=== PATIENT | male | born 1955 | race Caucasian/White ===

== ENCOUNTER 2021-04-25 10:17 | Day surgery (SDC) | payer MEDICARE, BC ==
[~2021-04-25] VITALS: Ht 182.9 cm; Wt 128.5 kg
[~2021-04-25 10:17] MED LIST: DUTA.5 PO; EDARBYCLOR 40-1 EACH PO; MICARDIS/HCTZ; OXYACE5T PO; Omeprazole20 M1; PROM25 PO; Phentermine HCl30 MG; RXOXYACE PO; VALS80; VITAMIN D-32000 UNIT PO
--- NOTE | 2021-04-25 11:03 | NUR ---
04/25/21 1103 Kendra Dye BLOOD IS DRAWN FOR PRP, ANTICOAG IS ADDED TO SPECIMEN, SPECIMEN DELIVERED TO OR AND SPUN.
--- NOTE | 2021-04-25 12:34 | NUR ---
04/25/21 1234 Kris Montoya 1 MG EPI ADDED TO EACH OF THE FIRST 3 BAGS OF LR PER ORDER FOR IRRIGATION.
--- NOTE | 2021-04-25 14:12 | NUR ---
04/25/21 1412 NILO TERRAZAS O2 PER NC AT 4L PLACED ON - O2 SAT DROPPING TO 89
== END 2021-04-25 14:11 | disposition home or self-care (01) ==
LOC: ORSCSDS 10:17
PROVIDERS: Orthopaedic Surgery
PROC: 0LS34ZZ Reposition Right Upper Arm Tendon, Percutaneous Endoscopic Approach (ICD-10-PCS; principal; 2021-04-25 11:45)
PROC: 0RNJ4ZZ Release Right Shoulder Joint, Percutaneous Endoscopic Approach (ICD-10-PCS; principal; 2021-04-25 11:45)
PROC: 0LQ14ZZ Repair Right Shoulder Tendon, Percutaneous Endoscopic Approach (ICD-10-PCS; principal; 2021-04-25 11:45)
DX: M75.111 Incomplete rotator cuff tear or rupture of right shoulder, not specified as traumatic (principal); M75.21 Bicipital tendinitis, right shoulder; M75.41 Impingement syndrome of right shoulder; I10 Essential (primary) hypertension; K21.9 Gastro-esophageal reflux disease without esophagitis; Z79.899 Other long term (current) drug therapy; E66.01 Morbid (severe) obesity due to excess calories; Z68.38 Body mass index [BMI] 38.0-38.9, adult
CPT/HCPCS: C1713; J0171; J0690; J1100; J1885; J2250; J2405; J2704; J3010; J7120

== ENCOUNTER 2022-01-30 09:37 | Day surgery (SDC) | payer MEDICARE, BC ==
[~2022-01-30] VITALS: Ht 182.9 cm; Wt 126.9 kg
[2022-01-30] MEDS ORDERED: ZINC15 (10:07)
[2022-01-30] MEDS ORDERED: FOLIKA-NC TABL1 EACH (10:07)
== END 2022-01-30 11:37 | disposition home or self-care (01) ==
LOC: ORSCSDS 09:37
PROVIDERS: Surgery
PROC: 0DBH8ZX Excision of Cecum, Via Natural or Artificial Opening Endoscopic, Diagnostic (ICD-10-PCS; principal; 2022-01-30 11:00)
PROC: 0DBK8ZX Excision of Ascending Colon, Via Natural or Artificial Opening Endoscopic, Diagnostic (ICD-10-PCS; principal; 2022-01-30 11:00)
DX: Z12.11 Encounter for screening for malignant neoplasm of colon (principal); Z86.010 Personal history of colon polyps; Z80.0 Family history of malignant neoplasm of digestive organs; D12.0 Benign neoplasm of cecum; D12.2 Benign neoplasm of ascending colon; I10 Essential (primary) hypertension; G47.30 Sleep apnea, unspecified; E11.9 Type 2 diabetes mellitus without complications; E66.9 Obesity, unspecified; Z68.38 Body mass index [BMI] 38.0-38.9, adult; Z79.899 Other long term (current) drug therapy
CPT/HCPCS: 82947; 88305; J2704; J7120

== ENCOUNTER → 2022-05-07 | Outpatient (CLI) | payer MEDICARE, BC ==
[~2022-05-07] MED LIST changes: +FOLIKA-NC TABL1 EACH; +ZINC15
== END | disposition home or self-care (01) ==
LOC: LAB 07:58 → LAB SHORT 07:58
DX: C43.62 Malignant melanoma of left upper limb, including shoulder (principal)
CPT/HCPCS: 88305

== ENCOUNTER → 2022-05-28 | Outpatient (CLI) | payer MEDICARE, BC | END | disposition home or self-care (01) | LOC: LAB SHORT 07:49 → PLD 07:49 | DX: D03.62 Melanoma in situ of left upper limb, including shoulder (principal) | CPT/HCPCS: 88305 ==

== ENCOUNTER 2022-06-08 08:19 | Day surgery (SDC) | payer MEDICARE, BC ==
[~2022-06-08] VITALS: Ht 182.9 cm; Wt 127.6 kg
[2022-06-08] MEDS ORDERED: TERB250 PO (09:01)
--- NOTE | 2022-06-08 10:49 | NUR ---
06/08/22 1049 Kris Montoya BUPIVACAINE 0.25% MIXED & VERIFIED 1:1 W/ BUPIVACAINE 0.75% TO MAKE BUPIVACAINE 0.5% 30 MLS. BUPIVACAINE 0.5% 30 MLS MIXED & VERIFIED W/ EPI 0.15 ML PER ORDER TO MAKE BUPIVACAINE 0.5% 1:200,000 FOR [facility]JECTION AT [facility] BY DR GARCIA. ALL 30 MLS OF LOCAL INJECT[facility] AT [facility] BY [facility] GARCIA.
== END 2022-06-08 12:42 | disposition home or self-care (01) ==
LOC: ORSCSDS 08:19
DX: M76.61 Achilles tendinitis, right leg (principal); M24.571 Contracture, right ankle; I10 Essential (primary) hypertension; G47.33 Obstructive sleep apnea (adult) (pediatric); K21.9 Gastro-esophageal reflux disease without esophagitis; E11.9 Type 2 diabetes mellitus without complications; E66.9 Obesity, unspecified; Z68.38 Body mass index [BMI] 38.0-38.9, adult; Z79.899 Other long term (current) drug therapy
CPT/HCPCS: 82947; A9270; C1713; J0171; J0690; J1100; J1885; J2250; J2405; J2704; J2795; J3010; J7120

== ENCOUNTER → 2022-09-27 | Outpatient (CLI) | payer MEDICARE, BC ==
[~2022-09-27] MED LIST changes: +TERB250 PO
== END | disposition home or self-care (01) ==
LOC: LAB SHORT 15:13
DX: D22.5 Melanocytic nevi of trunk (principal)
CPT/HCPCS: 88305; 88342

== ENCOUNTER 2022-10-23 18:56 | Emergency (ER) | payer MEDICARE, BC ==
[~2022-10-23] VITALS: Ht 182.9 cm; Wt 124.7 kg
[2022-10-23 19:41] LABS: Albumin, Blood 3.9 g/dL (3.4-5.0); Albumin/Globulin Ratio 1.1 (0.8-1.8); Bun/Creatinine Ratio 34.9 (12.0-20.0); Calcium, Blood 8.9 mg/dL (8.5-10.1); Creatinine, Blood 0.52 mg/dL (0.60-1.20); Globulin, Blood 3.7 g/dL (2.2-4.0); Potassium, Blood 3.4 mmol/L (3.5-5.5); Total Protein, Blood 7.6 g/dL (6.4-8.2)
[2022-10-23 19:58] LABS: Influenza A, PCR NEGATIVE (NEGATIVE); Influenza B, PCR NEGATIVE (NEGATIVE); Resp Syncytial Virus, PCR NEGATIVE (NEGATIVE); SARS-Cov-2 (COVID-19) PCR, MMC NEGATIVE (NEGATIVE)
[2022-10-23 20:24] LABS: BASOPHILS ABSOLUTE AUTO 0.03 K/mm3 (0.00-0.23); BASOPHILS PERCENT AUTO 0 % (0-2); EOSINOPHILS ABSOLUTE AUTO 0.03 K/mm3 (0.00-0.68); EOSINOPHILS PERCENT AUTO 0 % (0-6); Hematocrit 41.4 % (37.0-53.0); Hemoglobin 15.5 g/dL (13.5-17.5); IMMATURE GRAN ABSOLUTE AUTO 0.06 K/mm3 (0.00-0.10); IMMATURE GRAN PERCENT AUTO 1 % (0-1); LYMPHOCYTES ABSOLUTE AUTO 1.49 K/mm3 (0.84-5.20); LYMPHOCYTES PERCENT AUTO 17 % (21-46); MONOCYTES ABSOLUTE AUTO 0.39 K/mm3 (0.16-1.47); MONOCYTES PERCENT AUTO 4 % (4-13); Mean Corpuscular HGB 33.3 pg (26.0-34.0); Mean Corpuscular HGB Conc 37.4 g/dL (31.5-36.5); Mean Corpuscular Volume 89 fL (80-100); Mean Platelet Volume 11.3 fL (9.1-12.4); NEUTROPHILS PERCENT AUTO 78 % (41-73); Platelet Count 175 K/mm3 (150-400); RDW Coefficient Variation 12.8 % (11.7-14.2); RDW Standard Deviation 41.7 fL (35.1-46.3); Red Blood Cell Count 4.65 M/mm3 (4.30-5.90)
[2022-10-24] MEDS ORDERED: MECL25 PO (01:09)
== END 2022-10-24 01:28 | disposition home or self-care (01) ==
LOC: ER 18:56
PROVIDERS: Student in an Organized Health Care Education/Training Program
DX: R42 Dizziness and giddiness (principal); R11.2 Nausea with vomiting, unspecified; I10 Essential (primary) hypertension; K21.9 Gastro-esophageal reflux disease without esophagitis; Z20.822 Contact with and (suspected) exposure to COVID-19; Z88.6 Allergy status to analgesic agent; Z79.899 Other long term (current) drug therapy
CPT/HCPCS: 0241U; 80053; 85025; A9270; J7030

== ENCOUNTER → 2022-10-30 | Outpatient (CLI) | payer MEDICARE, BC ==
[~2022-10-30] MED LIST changes: +MECL25 PO
== END | disposition home or self-care (01) ==
LOC: LAB SHORT 12:26
DX: D03.59 Melanoma in situ of other part of trunk (principal)
CPT/HCPCS: 88305

== ENCOUNTER → 2024-06-18 | Outpatient (CLI) | payer MEDICARE, BC ==
[2024-06-18 14:46] LABS: BASOPHILS ABSOLUTE AUTO 0.04 K/mm3 (0.00-0.23); BASOPHILS PERCENT AUTO 1 % (0-2); EOSINOPHILS ABSOLUTE AUTO 0.13 K/mm3 (0.00-0.68); EOSINOPHILS PERCENT AUTO 2 % (0-6); Hematocrit 38.8 % (37.0-53.0); Hemoglobin 14.2 g/dL (13.5-17.5); IMMATURE GRAN ABSOLUTE AUTO 0.01 K/mm3 (0.00-0.10); IMMATURE GRAN PERCENT AUTO 0 % (0-1); LYMPHOCYTES ABSOLUTE AUTO 1.32 K/mm3 (0.84-5.20); LYMPHOCYTES PERCENT AUTO 18 % (21-46); MONOCYTES ABSOLUTE AUTO 0.67 K/mm3 (0.16-1.47); MONOCYTES PERCENT AUTO 9 % (4-13); Mean Corpuscular HGB 34.1 pg (26.0-34.0); Mean Corpuscular HGB Conc 36.6 g/dL (31.5-36.5); Mean Corpuscular Volume 93 fL (80-100); Mean Platelet Volume 10.9 fL (9.1-12.4); NEUTROPHILS ABSOLUTE AUTO 5.33 K/mm3 (1.96-9.15); NEUTROPHILS PERCENT AUTO 71 % (41-73); Platelet Count 142 K/mm3 (150-400); RDW Coefficient Variation 13.1 % (11.7-14.2); RDW Standard Deviation 44.1 fL (35.1-46.3); Red Blood Cell Count 4.17 M/mm3 (4.30-5.90)
[2024-06-18 14:56] LABS: Albumin, Blood 3.7 g/dL (3.4-5.0); Albumin/Globulin Ratio 1.1 (0.8-1.8); Bilirubin, Total 1.9 mg/dL (0.1-1.0); Bun/Creatinine Ratio 16.8 (12.0-20.0); Calcium, Blood 8.6 mg/dL (8.5-10.1); Creatinine, Blood 1.07 mg/dL (0.60-1.20); Globulin, Blood 3.4 g/dL (2.2-4.0); Potassium, Blood 3.3 mmol/L (3.5-5.5); Total Protein, Blood 7.1 g/dL (6.4-8.2)
== END ==
LOC: LAB 14:41 → LAB SHORT 14:41
PROVIDERS: Physician Assistant
DX: R10.9 Unspecified abdominal pain (principal)
CPT/HCPCS: 80053; 85025

== ENCOUNTER → 2024-11-02 | Outpatient (CLI) | payer MEDICARE, BC ==
[2024-11-02 16:00] LABS: Microalbumin, Urine Quant. 30.4 mg/L (0.000-20.000); Protein, Urine Quantitative 9.7 mg/dL (0.0-11.9)
== END ==
LOC: LAB 08:30 → LAB SHORT 08:30 → LAB FUT 10-30 11:50
PROVIDERS: Internal Medicine Nephrology
DX: N18.2 Chronic kidney disease, stage 2 (mild) (principal); D63.1 Anemia in chronic kidney disease; N25.81 Secondary hyperparathyroidism of renal origin; E85.9 Amyloidosis, unspecified; E78.00 Pure hypercholesterolemia, unspecified; N40.1 Benign prostatic hyperplasia with lower urinary tract symptoms; R76.9 Abnormal immunological finding in serum, unspecified; R94.5 Abnormal results of liver function studies; R94.6 Abnormal results of thyroid function studies
CPT/HCPCS: 81050; 82043; 82570; 84156

== ENCOUNTER 2025-08-03 13:13 | Day surgery (SDC) | payer MEDICARE, BC ==
[~2025-08-03] VITALS: Ht 182.9 cm; Wt 124.6 kg
[~2025-08-03 13:13] MED LIST changes: +Aspir 8181 MG PO; +B COMPLEX FORM0.4 MG PO; +CO Q-10100 MG; +FLUC200; -FOLIKA-NC TABL1 EACH; +GALZIN50 MG PO; +LORA10ER PO; +METAMUCIL174 GM PO; +MULTI-VITAMIN1 EAC2 PO; +OMEP20ER PO; +POTA10T PO; -VITAMIN D-32000 UNIT PO; +VITAMIN D310 MC1 PO; -ZINC15
--- NOTE | 2025-08-03 13:48 | NUR ---
PATIENT REPORTS TAKING ALL COLON PREP WITH [facility]ERA RESULTS. REPORST FINISHED TAKING PREP AT 0930 THIS AM AND NPO AFTER THAT. , CALEB, AT BEDSIDE, CONFIRMS RIDE HOME ARRANGED WITH HER.
[2025-08-03 14:00] VITALS: BP 157/84
--- NOTE | 2025-08-03 15:57 | NUR ---
08/03/25 [address] BORGES, SEE ANESTHESIA RECORDS.
[2025-08-03 16:31] VITALS: BP 136/80
--- NOTE | 2025-08-03 16:55 | NUR ---
Patient States Post-Procedure ride home has been arranged. Discharge instructions reviewed with patient. Patient verbalizes understanding. Copy given to patient to take home. Discharged via wheelchair to private car for ride home. Patient's vital signs returned to baseline and patient denied pain.
[2025-08-03] MEDS ORDERED: Propofol 10mg/ml 20 ml Vial (Procedural) IV ONE (17:27)
== END 2025-08-03 23:00 | disposition home or self-care (01) ==
LOC: ORSCMMR 13:13 → ORD 14:45 → ORSCMMR 14:45
PROVIDERS: Surgery
PROC: 0DBL8ZX Excision of Transverse Colon, Via Natural or Artificial Opening Endoscopic, Diagnostic (ICD-10-PCS; principal; 2025-08-03 15:30)
PROC: 0DBM8ZX Excision of Descending Colon, Via Natural or Artificial Opening Endoscopic, Diagnostic (ICD-10-PCS; principal; 2025-08-03 15:30)
PROC: 0DBK8ZX Excision of Ascending Colon, Via Natural or Artificial Opening Endoscopic, Diagnostic (ICD-10-PCS; principal; 2025-08-03 15:30)
DX: Z12.11 Encounter for screening for malignant neoplasm of colon (principal); Z86.0101 Personal history of adenomatous and serrated colon polyps; Z80.0 Family history of malignant neoplasm of digestive organs; D12.2 Benign neoplasm of ascending colon; D12.3 Benign neoplasm of transverse colon; K63.3 Ulcer of intestine; I10 Essential (primary) hypertension; G47.33 Obstructive sleep apnea (adult) (pediatric); E66.9 Obesity, unspecified; Z68.37 Body mass index [BMI] 37.0-37.9, adult; Z79.899 Other long term (current) drug therapy
CPT/HCPCS: 82947; 88305; J2704; J7120